=== PATIENT | male | born 1970 | race Caucasian/White ===

== ENCOUNTER 2016-09-18 14:28 | Emergency (ER) | payer BC ==
[~2016-09-18] VITALS: Ht 165.1 cm; Wt 68.9 kg
[~2016-09-18 14:28] MED LIST: ANAPROX DS550 MG PO; LISINOPRIL2.5 MG PO; METFORMIN500 MG PO; MULTIPLE VITAMI1 CAP PO; PRILOSEC20 M1 PO; ROBAXIN750 MG PO
[2016-09-18] MEDS ORDERED: PRINIVIL10 MG PO (14:33)
[2016-09-18 15:07] LABS: BASO % 0.1 % (0.0-1.0); HEMATOCRIT 47.9 % (42.0-52.0); HEMOGLOBIN 16.7 g/dl (14.0-18.0); LYMPH # 1.1 10*3/uL (1.3-4.4); LYMPH % 15.9 % (27.0-41.0); MEAN CELL VOLUME 84.5 fl (80.0-94.0); MEAN CORPUSCULAR HGB 29.5 pg (27.0-31.0); MEAN CORPUSCULAR HGB CONC 34.9 g/dl (33.0-37.0); MEAN PLATELET VOLUME 8.8 fl (9.6-12.3); MONO # 0.4 10*3/uL (0.1-1.0); MONO % 6.4 % (3.0-9.0); NEUT # 5.3 10*3/uL (2.3-7.9); NEUT % 77.2 % (47.0-73.0); PLATELET COUNT AUTOMATED 232 10*3/uL (130-400); RED BLOOD COUNT 5.67 10*6/uL (4.50-5.90); RED CELL DISTRI WIDTH 13.7 % (0-14.5); WHITE BLOOD COUNT 6.9 10*3/uL (4.8-10.8)
[2016-09-18 15:17] LABS: BILIRUBIN NEGATIVE (NEGATIVE); BLOOD NEGATIVE (NEGATIVE); CLARITY SL CLOUDY (CLEAR); COLOR YELLOW (YELLOW); GLUCOSE NEGATIVE (NEGATIVE); KETONE 1+ (NEGATIVE); LEUKO ESTERASE NEGATIVE (NEGATIVE); NITRITE NEGATIVE (NEGATIVE); PROTEIN 1+ (NEGATIVE); SPECIFIC GRAVITY 1.025 (1.005-1.030)
[2016-09-18 15:25] LABS: ALBUMIN 4.2 gm/dl (3.1-4.5); ALKALINE PHOSPHATASE 83 U/L (45-117); BILIRUBIN, TOTAL 1.2 mg/dl (0.2-1.0); BUN 14 mg/dl (7-24); CARBON DIOXIDE 24 mmol/L (21-32); CHLORIDE 102 mmol/L (98-107); EST GLOM FILT AFRICAN AMERICAN > 60 ml/min; GLUCOSE 97 mg/dL (65-99); SGOT/AST 25 IU/L (3-35); SGPT/ALT 54 U/L (12-78); SODIUM 137 mmol/L (136-145); TOTAL PROTEIN 8.8 gm/dL (6.4-8.2)
[2016-09-18 15:43] LABS: BACTERIA 1+; EPITHELIAL CELLS 0-2; RBC 0-2 rbc/hpf (0-2); URINE REFLEX COMMENT NO (NO); WBC 0-2 wbc/hpf (0-5)
[2016-09-18] MEDS ORDERED: AUGMENTIN 875-875 MG PO (16:22)
[2016-09-18] MEDS ORDERED: ZOFRAN ODT4 MG SL (16:22)
[2016-09-18] MEDS ORDERED: MECLIZINE HCL25 M2 PO (16:22)
== END 2016-09-18 16:40 | disposition home or self-care (01) ==
LOC: ED 14:28
PROVIDERS: Nurse Practitioner Family
DX: H65.91 Unspecified nonsuppurative otitis media, right ear (principal); Z98.890 Other specified postprocedural states; Z90.89 Acquired absence of other organs; Z79.899 Other long term (current) drug therapy

== ENCOUNTER 2019-08-13 11:15 | Emergency (ER) | payer BC ==
[~2019-08-13] VITALS: Ht 167.6 cm; Wt 74.8 kg
[~2019-08-13 11:15] MED LIST changes: +AUGMENTIN 875-875 MG PO; +MECLIZINE HCL25 M2 PO; +PRINIVIL10 MG PO; +ZOFRAN ODT4 MG SL
[2019-08-13] MEDS ORDERED: CYCLOBENZAPRINE10 MG PO (13:09)
[2019-08-13] MEDS ORDERED: NORCO 10-325 T1 EACH PO (13:11)
== END 2019-08-13 13:27 | disposition home or self-care (01) ==
LOC: ED 11:15
DX: S33.5XXA Sprain of ligaments of lumbar spine, initial encounter (principal); I10 Essential (primary) hypertension; E11.9 Type 2 diabetes mellitus without complications; K21.9 Gastro-esophageal reflux disease without esophagitis; Z79.2 Long term (current) use of antibiotics; Z79.899 Other long term (current) drug therapy; X50.1XXA Overexertion from prolonged static or awkward postures, initial encounter; Y93.89 Activity, other specified; Y92.238 Other place in hospital as the place of occurrence of the external cause; Y99.8 Other external cause status

== ENCOUNTER 2019-08-15 10:13 | Emergency (ER) | payer BC ==
[~2019-08-15 10:13] MED LIST changes: +CYCLOBENZAPRINE10 MG PO; +NORCO 10-325 T1 EACH PO
[2019-08-15] MEDS ORDERED: ROBAXIN-750750 MG PO (11:42)
[2019-08-15] MEDS ORDERED: PREDNISONE50 MG PO (11:42)
== END 2019-08-15 11:46 | disposition home or self-care (01) ==
LOC: ED 10:13
DX: M54.5 Low back pain (principal); Z79.899 Other long term (current) drug therapy

== ENCOUNTER 2020-10-16 12:32 | Emergency (ER) | payer OTHER, BC ==
[~2020-10-16] VITALS: Ht 167.6 cm; Wt 74.8 kg
[~2020-10-16 12:32] MED LIST changes: +PREDNISONE50 MG PO; +ROBAXIN-750750 MG PO
[2020-10-16] MEDS ORDERED: IBUPROFEN600 MG PO (16:05)
[2020-10-16] MEDS ORDERED: CEPHALEXIN500 M1 PO (16:05)
== END 2020-10-16 19:32 | disposition home or self-care (01) ==
LOC: ED 12:32
DX: S50.12XA Contusion of left forearm, initial encounter (principal); Z79.899 Other long term (current) drug therapy; Z98.890 Other specified postprocedural states; X58.XXXA Exposure to other specified factors, initial encounter; Y93.89 Activity, other specified; Y92.89 Other specified places as the place of occurrence of the external cause; Y99.8 Other external cause status